=== PATIENT | female | born 1985 | race Native Hawaiian/Other Pacific Islander ===

== ENCOUNTER 2018-02-03 16:29 | Emergency (ER) | payer BC ==
[~2018-02-03] VITALS: Ht 165.1 cm; Wt 108.9 kg
[2018-02-03 16:35] VITALS: TEMP 97.5
[2018-02-03] MEDS ORDERED: ESCITALOPRAM10 MG PO (16:38)
[2018-02-03] MEDS ORDERED: LISI20TA31 PO (16:40)
[2018-02-03] MEDS ORDERED: LISI20TA11 PO (16:41)
[2018-02-03] MEDS ORDERED: AMLODIPINE BESYLATE PO (16:42)
[2018-02-03 18:44] VITALS: BP 194/114
== END 2018-02-03 19:21 | disposition home or self-care (01) ==
LOC: ED 16:29
DX: I16.0 Hypertensive urgency (principal); H34.8122 Central retinal vein occlusion, left eye, stable
CPT/HCPCS: 99283